=== PATIENT | male | born 1965 | race Caucasian/White ===

== ENCOUNTER 2022-01-06 06:14 | Observation (INO) ==
--- NOTE | 2021-12-18 09:36 | PAT Medication Instructions ---
Medication Instructions Date of Service December 18, 2021 Home Medications bupropion HCl 150 mg tablet,12 hr sustained-release 150 mg PO QAM cholecalciferol (vitamin D3) 25 mcg (1,000 unit) tablet (Vitamin D3) 25 mcg PO QAM cyanocobalamin (vitamin B-12) 5,000 mcg sublingual tablet (Vitamin B-12) 5,000 mcg SUBLINGUAL QAM diclofenac sodium 50 mg tablet,delayed release 50 mg PO BID hydroxyzine pamoate 50 mg capsule (Vistaril) 50 mg PO HS ibuprofen 200 mg tablet 800 mg PO Q6H PRN levothyroxine 150 mcg tablet 150 mcg PO QAM lisinopril 20 mg tablet 20 mg PO QAM paroxetine HCl 40 mg tablet (Paxil) 80 mg PO QAM simvastatin 10 mg tablet (Zocor) 10 mg PO QAM ASK your surgeon for instructions diclofenac sodium 50 mg tablet,delayed release 50 mg PO BID ibuprofen 200 mg tablet 800 mg PO Q6H PRN DO NOT take the morning of surgery cholecalciferol (vitamin D3) 25 mcg (1,000 unit) tablet (Vitamin D3) 25 mcg PO QAM cyanocobalamin (vitamin B-12) 5,000 mcg sublingual tablet (Vitamin B-12) 5,000 mcg SUBLINGUAL QAM lisinopril 20 mg tablet 20 mg PO QAM Take morning of surgery With a small sip of water, OTHERWISE NOTHING TO EAT OR DRINK AFTER MIDNIGHT: bupropion HCl 150 mg tablet,12 hr sustained-release 150 mg PO QAM levothyroxine 150 mcg tablet 150 mcg PO QAM paroxetine HCl 40 mg tablet (Paxil) 80 mg PO QAM simvastatin 10 mg tablet (Zocor) 10 mg PO QAM Take evening before surgery hydroxyzine pamoate 50 mg capsule (Vistaril) 50 mg PO HS Other Notes If you have any questions please call us at [phone] or [phone] or [phone] or [phone]
--- NOTE | 2021-12-18 11:49 | Anesthesiology Consultation ---
Date of Service December 18, 2021 Assessment & Plan (1) Encounter for pre-operative examination: - Awaiting surgeon-ordered PCP preop evaluation (Dr. Amaro; scheduled 12/23). - Hx "bone condition": Follows with Adina Pandya. Awaiting most recent heme/onc office visit note for further information/clarification. - COVID screening: Per assessment on 12/18: No known COVID-19 positive contacts or current COVID-19 related symptoms. Travel screen negative. Surgeon arranging preop COVID testing. Awaiting results. - Chlorhexidine allergy: Hives with use in the past- no wipes given at PAT visit. Chart Review Chart Review: Patient seen in Pre Admission Testing Teaching & Discussion Pre-Anesthesia Teaching/Discussion Notes: Instructed NPO after midnight before surgery,except medications with 15 cc of water. Medication instructions provided according to the [facility] guidelines. History Surgery Operation Date: 01/06/22 07:00 Proposed Procedures p Right Total Knee Arthroplasty - Evelio Cain MD Height/Weight Height: 6 ft 2 in Weight: 135.4 kg Allergies Allergy/AdvReac Type Severity Reaction Status Date / Time bee venom protein (honey bee) Allergy Severe Anaphylaxis Verified 12/18/21 08:31 chlorhexidine Allergy Intermediate Hives Verified 12/18/21 08:31 Medications Home Medications Medication Instructions Recorded Confirmed Last Taken bupropion HCl 150 mg tablet,12 hr 150 mg PO QAM 12/18/21 12/18/21 Unknown sustained-release cholecalciferol (vitamin D3) 25 25 mcg PO QAM 12/18/21 12/18/21 Unknown mcg (1,000 unit) tablet (Vitamin D3) cyanocobalamin (vitamin B-12) 5,000 mcg SUBLINGUAL QAM 12/18/21 12/18/21 Unknown 5,000 mcg sublingual tablet (Vitamin B-12) diclofenac sodium 50 mg 50 mg PO BID 12/18/21 12/18/21 Unknown tablet,delayed release hydroxyzine pamoate 50 mg capsule 50 mg PO HS 12/18/21 12/18/21 Unknown (Vistaril) ibuprofen 200 mg tablet 800 mg PO Q6H PRN 12/18/21 12/18/21 Unknown levothyroxine 150 mcg tablet 150 mcg PO QAM 12/18/21 12/18/21 Unknown lisinopril 20 mg tablet 20 mg PO QAM 12/18/21 12/18/21 Unknown paroxetine HCl 40 mg tablet (Paxil) 80 mg PO QAM 12/18/21 12/18/21 Unknown simvastatin 10 mg tablet (Zocor) 10 mg PO QAM 12/18/21 12/18/21 Unknown Past Medical History Medical History Anemia Anxiety Depression Gout Hyperlipidemia Hypertension Hypothyroidism Obesity Osteoarthritis Sarcoidosis of lung Right lung, stable/no recent issues Sleep apnea CPAP (compliant) Exercise / Class Metabolic Activity II 4-5 Yardwork/Stairs/Walk up hill (one FS (no CP, no SOB)) Past Family History Family History Other No family history of adverse response to anesthesia Past Surgical History Surgical History History of anesthesia reaction Slow to wake after bronchoscopy History of bronchoscopy History of colonoscopy History of esophagogastroduodenoscopy (EGD) History of repair of left rotator cuff History of tooth extraction History of umbilical hernia repair Past Anesthesia History No Family Hx of Anesthesia Complications and Other (single episode slow to wake (after bronchoscopy)) History of PONV No Hx of PONV and No Hx of Motion Sickness Social History Smoking Status: Former smoker Do You Dip or Chew Tobacco: No Smoking End Date: Quit 20+ years ago Hx Alcohol Use: Yes alcohol intake frequency: holidays/special occasions only Hx Substance Use: No substance use type: does not use Review of Systems Patient denies chest pain, shortness of breath, dyspnea on exertion, fever, chills, cough, wheezing, palpitations. Physical Exam Vital Signs VITALS BP 138/83 P 52 TEMP 98.2 SP02 96%RA RESP 16 PHYSICAL Full cervical extension range of motion. Full TMJ range of motion. TMD 4 finger breaths Mallampati Score 3 Dentition: several missing teeth Lungs: clear throughout to auscultation Cardiac: regular rate and rhythm, no murmurs noted, distant heart sounds Spine: normal Carotid arteries: negative bruit Extremities: trace pedal edema Lab Results Anesthesia Preop Results Results Anesthesia Widget: WBC 5.52 K/ul (4.8-10.8) 12/18/21 Hgb 12.1 g/dl (14.0-18.0) L 12/18/21 Hct 36.7 % (40.1-51.0) L 12/18/21 Plt 230 K/uL (130-400) 12/18/21 Na 139 mmol/L (136-145) 12/18/21 K 4.2 mmol/L (3.5-5.1) 12/18/21 Cl 105 mmol/L (98-107) 12/18/21 CO2 29 mmol/L (21-32) 12/18/21 BUN 26 mg/dl (6-23) H 12/18/21 Creat 1.35 mg/dl (0.6-1.4) 12/18/21 Glucose Level 87 mg/dl (70-99(Fasting)) 12/18/21 PT 10.6 Seconds (9.0-12.0) 12/18/21 PTT 25.7 Seconds (21.0-31.0) 12/18/21 INR 1.0 (0.9-1.1) 12/18/21 HA1c 6.1 % (4.5-5.6) H 12/18/21 Urine Color Dark Yellow 12/18/21 Urine Appearance Clear (Clear) 12/18/21 Urine pH 5.5 (4.5-7.5) 12/18/21 Urine Specific [place] 1.022 (1.000-1.030) 12/18/21 Urine Protein Negative (Negative) 12/18/21 Urine Glucose (UA) Negative (Negative) 12/18/21 Urine Ketones Trace (Negative) H 12/18/21 Urine Blood Negative (Negative) 12/18/21 Urine Nitrite Negative (Negative) 12/18/21 Urine Bilirubin Negative (Negative) 12/18/21 Urine Urobilinogen Negative (Negative) 12/18/21 Urine Leukocyte Esterase Negative (Negative) 12/18/21 Blood Type A Positive 12/18/21 Antibody Screen NEGATIVE 12/18/21 Testing Electrocardiogram Date: 12/18/21 SB at 46bpm. NS IVCD. Chest X-Ray Date: 12/18/21 FINDINGS: Frontal and lateral radiographs of the chest demonstrate the cardiomediastinal silhouette to be within normal limits. The lungs are clear of alveolar opacities. There is no evidence for effusion bilaterally. There is no evidence for vascular congestion. There is no acute osseous pathology. IMPRESSION: No acute cardiopulmonary disease.
--- NOTE | 2022-01-05 19:46 | History & Physical Report ---
Date of Service January 05, 2022 Assessment & Plan (1) Primary osteoarthritis of right knee: Plan: Treatment options discussed with the patient. He has failed conservative measures and would like to proceed with surgical intervention. Risks, benefits and alternatives to surgery including but not limited to infection, DVT, pain, stiffness, need for revision surgery, damage to blood vessels, damage to nerves, PE, , were discussed with the patient and they wish to proceed. Plan on right total knee arthroplasty scheduled for 01/06/22 at [facility] with Dr. Cain. Will plan on HHPT vs outpatient PT post op. Plan on aspirin 81mg twice daily for 1 mo post op. All questions answered. He will follow up post op. History of Present Illness Chief Complaint: right knee pain Primary Care Provider: NO PCP 56 year old male with PMHx significant for HTN, high cholesterol, hypothyroidism, sarcoidosis who presents with ongoing right knee pain. Pain is interfering with daily activities. He has failed conservative measures and would like to proceed with knee replacement. Patient denies headaches, sweats, fevers, chills, double vision, blurred vision, cough, sore throat, dysphagia, chest pain, sob, wheezing, n/v/d/c, numbness, tingling, fatigue, urinary symptoms, mood disorders. ROS positive for right knee pain and stiffness. Allergies Allergy/AdvReac Type Severity Reaction Status Date / Time bee venom protein (honey bee) Allergy Severe Anaphylaxis Verified 12/18/21 08:31 chlorhexidine Allergy Intermediate Hives Verified 12/18/21 08:31 Home Medications Medication Instructions Recorded Confirmed Type bupropion HCl 150 mg tablet,12 hr 150 mg PO QAM 12/18/21 12/18/21 History sustained-release cholecalciferol (vitamin D3) 25 25 mcg PO QAM 12/18/21 12/18/21 History mcg (1,000 unit) tablet (Vitamin D3) cyanocobalamin (vitamin B-12) 5,000 mcg sublingual QAM 12/18/21 12/18/21 History 5,000 mcg sublingual tablet (Vitamin B-12) diclofenac sodium 50 mg 50 mg PO BID 12/18/21 12/18/21 History tablet,delayed release hydroxyzine pamoate 50 mg capsule 50 mg PO HS 12/18/21 12/18/21 History (Vistaril) ibuprofen 200 mg tablet 800 mg PO Q6H PRN Pain 12/18/21 12/18/21 History levothyroxine 150 mcg tablet 150 mcg PO QAM 12/18/21 12/18/21 History lisinopril 20 mg tablet 20 mg PO QAM 12/18/21 12/18/21 History paroxetine HCl 40 mg tablet (Paxil) 80 mg PO QAM 12/18/21 12/18/21 History simvastatin 10 mg tablet (Zocor) 10 mg PO QAM 12/18/21 12/18/21 History Past Med/Surg History Medical History Anemia Anxiety Depression Gout Hyperlipidemia Hypertension Hypothyroidism Obesity Osteoarthritis Sarcoidosis of lung Right lung, stable/no recent issues Sleep apnea CPAP (compliant) Surgical History History of anesthesia reaction Slow to wake after bronchoscopy History of bronchoscopy History of colonoscopy History of esophagogastroduodenoscopy (EGD) History of repair of left rotator cuff History of tooth extraction History of umbilical hernia repair Family History Other No family history of adverse response to anesthesia Social History Smoking Status: Former smoker Second Hand Exposure: No; Hx Alcohol Use: Yes Hx Substance Use: No Preferred Language: Belgian Communication Ability: Effective Clinical Laboratory Technologist Required: No Beliefs That Will Affect Care: None Current Living Situation: Spouse and Family Current Living Situation Comment: lives with and daughter Feels Safe at Home: Yes Assistive Devices: CPAP and Glasses Review of Systems All systems reviewed & are unremarkable except as noted in HPI & below Physical Exam Constitutional: well developed and well nourished; no acute distress Eyes: PERRL, conjunctivae normal, anicteric sclerae ENMT: external ear and nose normal, oropharynx normal Neck: trachea midline, no thyromegaly Respiratory: normal respiratory effort, lungs clear to auscultation Cardiovascular: RRR, no murmur, no edema Musculoskeletal: Right knee: Tenderness lateral joint line. Mild effusion. Valgus alignment. Painful but full ROM 0-135 degrees. Crepitation with ROM. Stable to valgus and varus stress. Skin: no rashes, warm and dry Neurologic: patellar DTR's 2+ bilat, sensation intact Psychiatric: A+Ox3, euthymic affect Results & Data ([facility]) Diagnostic Findings Right knee radiographs demonstrate endstage osteoathritis lateral compartment with moderate to severe degenerative changes PF compartment.
[~2022-01-06 06:14] MED LIST: ACETAMINOPHEN 500 MG TAB PO SCH; CeleBREX 200 MG CAP PO SCH; FAMOTIDINE 20 MG TAB PO SCH; GABAPENTIN 600 MG DOSE PO SCH; LR 500ML BOLUS, THEN 15ML/HR IV SCH; METOCLOPRAMIDE HCL 10 MG TABLET PO SCH; ROPIVACAINE 0.5% HCL/PF 150 MG, BUPIVACAINE 0.75% MPF 20 ML, EPINEPHrine 30MG/30ML (OR ... INFIL SCH; TRANEXAMIC ACID 1,000 MG **IV Intra-op IV SCH; TRANEXAMIC ACID 1,000 MG **IV Pre-op IV SCH; dexAMETHasone 4 MG TAB PO SCH
[2022-01-06] MEDS ORDERED: BUPIVACAINE 0.5 % 5 MG/1 ML PF 10ML VIAL ONE (06:34)
[2022-01-06] MEDS ORDERED: ROPIVACAINE 0.5% 5 MG/ML 30 ML VIAL ONE (06:34)
--- NOTE | 2022-01-06 07:27 | History & Physical Bridge Note ---
Date of Service January 06, 2022 History & Physical Bridge Note I have examined the patient, reviewed the History & Physical and in the interval since the performance of the History & Physical I have noted the following changes of clinical significance: no changes noted
[2022-01-06] MEDS ORDERED: MIDAZOLAM HCL 1 MG/ML 2ML VIAL ONE (07:45)
[2022-01-06] MEDS ORDERED: fentaNYL citrate 100 MCG/2 ML VIAL ONE (07:45)
[2022-01-06] MEDS ORDERED: ORTHO JOINT ANESTHETIC ONE (09:16)
[2022-01-06] MEDS ORDERED: ONDANSETRON INJ 2 MG/ML 2 ML VIAL IV PRN ×2 (10:40→14:06)
[2022-01-06] MEDS ORDERED: LABETALOL HCL IV 5 MG/ML 20ML IV PRN (10:40)
[2022-01-06] MEDS ORDERED: ATROPINE SULFATE 0.1 MG/ML 10ML SYR IV PRN (10:40)
[2022-01-06] MEDS ORDERED: KETOROLAC 30 MG/ML VIAL IV PRN (10:40)
[2022-01-06] MEDS ORDERED: fentaNYL citrate 100 MCG/2 ML VIAL IV PRN (10:40)
[2022-01-06] MEDS ORDERED: PROPOFOL IV EMULSION 10 MG/ML 20 ML VIAL IV ONE (11:36)
[2022-01-06] MEDS ORDERED: ePHEDrine sulfate 50 MG/ML SYR ONE (11:36)
[2022-01-06] MEDS ORDERED: GLYCOPYRROLATE 0.2 MG/ML VIAL ONE (11:36)
[2022-01-06] MEDS ORDERED: LIDOCAINE 2% 2 ML VIAL/AMP(20MG/ML) INFIL ONE (11:36)
--- NOTE | 2022-01-06 11:53 | Operative Report ---
Post Operative Report Pre & Post Diagnosis Operation Date: 01/06/22 09:00 Pre-Op Diagnosis: Primary Osteoarthrits of the Right Knee Post-Op Diagnosis: Primary Osteoarthrits of the Right Knee I identified the patient and participated in the time-out.: Yes Procedure Operation Date: 01/06/22 09:00 Actual Procedures p Right Total Knee Arthroplasty(Right), superficial wound VAC application- Evelio Cain MD Surgeon Evelio Cain MD Master Chef Danial MCKEON Estimated Blood Loss 5 Findings Consistent with Post-Op Diagnosis Specimens Bone cuts Drains 2 Hemovac Anesthesia Type MAC Spinal Regional Complications none Disposition Disposition: Recovery Room Indications 56-year-old male with progressive pain and disability related osteoarthritis of his right knee with a valgus knee [id number] lateral compartment and moderate patellofemoral OA. Description of Procedure Patient taken to the operating room the size under spinal MAC regional block anesthesia. Patient was placed supine on the operating table. A pneumatic tourniquet was placed about the right upper thigh. The right lower extremity was prepped and draped in sterile fashion. Knee exam demonstrated moderate obesity with varicosities and some venous stasis changes calf and lower leg. The leg was elevated exsanguinated with an Esmarch bandage and pneumatic tourniquet was raised to 350 millimeters of mercury. Skin incised sharply in longitudinal fashion. Subcutaneous flaps elevated. Incision was made through the medial retinaculum extending up in the mid third of the quadriceps tendon and down to the medial tibial tubercle. Intra-articular findings demonstrated osteoarthritis tricompartmentally with grade III chondromalacia medially grade IV chondromalacia [id number] eburnated bone lateral compartment with chronic degeneration and tearing lateral meniscus and grade II chondromalacia patella but a large inferior patellar spur. The [place] triathlon total knee arthroplasty system was used. To expose the knee the infrapatellar fat pad was resected. The meniscal remnants and cruciate ligaments were resected. The anterior fat pad over the femur in the area of the anterior flange of the femoral component was resected. Lateral synovial bands release. The femur was exposed. An intramedullary drill hole was made into the canal. A guide idalia was placed. Distal femoral cutting guide was adjusted to resect a 6 degree valgus cut with 8 millimeters distal femur resected. The knee was extended and a subperiosteal peel lateral release was performed around the patella. Patella width was measured and width was reproduced using a freehand cut technique and a 36 symmetrical patella component. The 3 drill holes were made and the excess lateral facet was beveled off to prevent any impingement. Attention was taken back to the femur which was exposed with retractors and the femoral sizing guide was pinned in position. The drill holes were placed in 3 of external rotation to match epicondylar axis. Femur sized for a 5 component. The 4-in-1 cutting block was placed and then the anterior posterior and chamfer cuts are made. The tibia was then subluxed. The external tibial cutting guide was just to make a perpendicular cut to the long axis of the tibia below the most deficient bone loss side. A lamina plater apprentice was used and the flexion extension gaps were balanced. All posterior osteophytes removed. All meniscal remnants were resected. The tibia exposed and the trial tibial component size 5 was externally rotated in line with the tibial tubercle and pinned in position. The punch for stem was used. The notch cutting device was centered appropriately and the femoral notch cut was made. The femoral trial was inserted. Trial tibial inserts were placed and size 13 posterior stabilized gave balanced ligaments through flexion and extension. Patella tracking was assessed. The patella tracked centrally. The trial components were then removed and the orthomix anesthetic cocktail was injected per protocol. The knee was then copiously irrigated with pulsatile lavage saline solution. Final components were then cemented with Simplex cement. Final components were [place] triathlon 5 right posterior stabilized femoral component with distal fixation pegs, 5 primary tibial baseplate, 5 x 13 mm posterior stabilized tibial bearing insert, X.3 symmetrical patella size 36 x 10. After the cement cured the Betadine soak was used for 3 minutes. Further pulsatile lavage irrigation was then performed and 2 Hemovac drains were brought out laterally. The quadriceps tendon and medial retinaculum were closed with figure of 8 #1 Vicryl sutures. The knee was taken through full range of motion and the repair was secure. Knee range of motion was 0 through 135 degrees. The subcutaneous tissues were closed with 2-0 Vicryl sutures. Skin was closed with pallavi. Jose and Acticoat superficial wound VAC was applied. The patient tolerated the procedure well. Danial MCKEON was my physician buyer assistant who participated as assistant center director and was involved in all aspects of the procedure including patient positioning prepping and draping,leg positioning ,soft tissue retraction and instrument management and participated in the closing and will participate in postoperative care of the patient. The patient tolerated the procedure well. I attest to the content of the Intraoperative Record and any orders documented therein. Any exceptions are noted below.
--- NOTE | 2022-01-06 13:08 | XRay Report ---
RIGHT KNEE 2 VIEWS History: Right total knee arthroplasty. Degenerative arthritis. Postop. FINDINGS: The patient is status post a right total knee arthroplasty. The hardware is intact. No frac ture or dislocation. Skin pallavi and surgical drains are in place. IMPRESSION: Right total knee arthroplasty. No evidence for hardware complication. ACT 112: Negative or not required by law. Electronically signed by: Isidro Cuevas M.D. 01/06/2022 1:07 PM
--- NOTE | 2022-01-06 13:39 | Anesthesiology Progress Note ---
Date of Service January 06, 2022 Anesthesia Post Procedure Vital Signs Vital Signs: Temp Pulse Pulse Resp BP Pulse Ox O2 Del Method 01/06/22 13:30 67 18 99/61 L 97 Room Air 01/06/22 13:05 36.1 C L 48 L 16 121/74 96 Room Air 01/06/22 12:55 49 L 14 102/66 98 Oxymask 01/06/22 12:45 60 16 108/76 100 Oxymask 01/06/22 13:15 49 L 12 113/67 95 Room Air 01/06/22 12:38 36.3 C L 49 L 14 95/69 L 100 Oxymask 01/06/22 07:05 36.7 C 47 L 18 156/90 H 98 Room Air 01/06/22 07:05 CPAP O2 Flow Rate 01/06/22 13:30 01/06/22 13:05 01/06/22 12:55 2 01/06/22 12:45 4 01/06/22 13:15 01/06/22 12:38 6 01/06/22 07:05 01/06/22 07:05 Transfer of Care Handoff Completed per policy Notes Mental Status: alert / awake / arousable Patient Amnestic to Procedure: Yes Nausea / Vomiting: adequately controlled Pain: adequately controlled Airway Patency, RR, SpO2: stable & adequate BP & HR: stable & adequate Hydration State: stable & adequate Neuraxial Anesthesia: was administered and sensory block is resolving Anesthetic Complications: no major complications apparent
[2022-01-06] MEDS ORDERED: NALOXONE HCL 0.4 MG/1 ML VIAL/CARP IV PRN (14:06)
[2022-01-06] MEDS ORDERED: METOCLOPRAMIDE HCL INJ 5 MG/ML 2 ML VIAL IV PRN (14:06)
[2022-01-06] MEDS ORDERED: SODIUM CHLORIDE 0.9% 1000ML 1,000 ML IV SCH (14:06)
[2022-01-06] MEDS ORDERED: TAMSULOSIN HCL 0.4 MG CAP PO PRN (14:06)
[2022-01-06] MEDS ORDERED: MAGNESIUM HYDROXIDE SUSP 30 ML UDC PO PRN (14:06)
[2022-01-06] MEDS ORDERED: bisacodyL 10 MG SUPP PR PRN (14:06)
[2022-01-06] MEDS ORDERED: HYDROmorphone INJ 0.5 MG/0.5 ML SYR IV PRN (14:06)
[2022-01-06] MEDS ORDERED: ACETAMINOPHEN 500 MG TAB ONE (14:43)
[2022-01-06] MEDS: ACETAMINOPHEN 500 MG TAB PO SCH ×2 (14:44→23:04)
[2022-01-06] MEDS: oxyCODONE HCL IR 5 MG TAB (IMMEDIATE RELEASE) PO PRN ×2 (15:22→19:30)
--- NOTE | 2022-01-06 15:32 | Hospitalist Consultation ---
Date of Consultation January 06, 2022 Assessment & Plan (1) Status post right knee replacement: - R TKA POD [address] Cain - Pain control & perioperative abx as written by orthopedics - Celebrex 200mg BID - Recommend utilizing incentive spirometer q1h wa for atelectasis/pna prevention - PT/OT eval - DVT ppx for minimum of 14 days, given his MGUS + obesity, would consider him a higher risk of VTE and subsequently would advise use of DOAC for 14 days * Discussed with Donato MOJICAC with ortho, agreed to use of Xarelto, subsequently order placed - Hold Lisinopril POD#1 d/t spinal anesthesia as this increases risk of hypotension and/or RICK - Cap fluids as he is tolerating oral intake - CM consult for d/c planning and arrangement of home health (2) MGUS (monoclonal gammopathy of unknown significance): - Follows with [facility], last seen in September 2021 (3) Hypertension: - Hold Lisinopril POD#1 to avoid hypotension/rick - Can resume POD#2 (4) Hyperlipidemia: - Continue Simvastatin (5) Hypothyroidism: - Continue Levothyroxine (6) Sleep apnea: - Continue cpap at HS (7) Depression: - Continue Paxil & Wellbutrin (8) Anxiety: - Continue Vistaril Plan Advise follow up labs in AM, additional recommendations as outlined above. Thank you for allowing us to participate in the care of your patient, will continue to follow along. Above will be d/w Dr. Schwartz. History of Present Illness Reason for Consultation: medical management Requesting Physician: Dr. Cain Attending Physician: Evelio Cain MD History of Present Illness Donato Mcneil is a 56 yo WM with a pmhx of sarcoidosis, hypothyroidism, obesity, sleep apnea, htn, MGUS, chronic anemia, hyperlipidemia, and depression who was admitted under Dr. Cain's service for elective R TKA due to chronic knee pain and OA which failed conservative measures. He was taken to the OR today where he received spinal anesthesia. Was treated perioperatively with pain cocktail, fluids, and prophylactic Ancef. He had an uneventful intraoperative course was transitioned to PACU where he underwent nerve block for additional pain control. He is presently resting on 3rd floor during my visit. He has no complaints including cp, dyspnea, n/v/d, f/c, headache, or gu symptoms. No uncontrolled knee pain. He has no prior personal or family h/o VTE. He lives at home with his in a one story home with 3 steps to enter and plans to return home upon discharge. Hospitalists have been asked to see in consult for routine post operative medical management. Allergies Allergy/AdvReac Type Severity Reaction Status Date / Time bee venom protein (honey bee) Allergy Severe Anaphylaxis Verified 01/06/22 06:59 chlorhexidine Allergy Intermediate Hives Verified 01/06/22 06:59 Home Medications Medication Instructions Recorded Confirmed Type bupropion HCl 150 mg tablet,12 hr 150 mg PO QAM 12/18/21 01/06/22 History sustained-release (Wellbutrin SR) cholecalciferol (vitamin D3) 25 25 mcg PO QAM 12/18/21 01/06/22 History mcg (1,000 unit) tablet (Vitamin D3) cyanocobalamin (vitamin B-12) 5,000 mcg sublingual QAM 12/18/21 01/06/22 History 5,000 mcg sublingual tablet (Vitamin B-12) diclofenac sodium 50 mg 50 mg PO BID 12/18/21 01/06/22 History tablet,delayed release hydroxyzine pamoate 50 mg capsule 50 mg PO HS 12/18/21 01/06/22 History (Vistaril) ibuprofen 200 mg tablet 800 mg PO Q6H PRN Pain 12/18/21 01/06/22 History levothyroxine 150 mcg tablet 150 mcg PO QAM 12/18/21 01/06/22 History lisinopril 20 mg tablet 20 mg PO QAM 12/18/21 01/06/22 History paroxetine HCl 40 mg tablet (Paxil) 80 mg PO QAM 12/18/21 01/06/22 History simvastatin 10 mg tablet (Zocor) 10 mg PO QAM 12/18/21 01/06/22 History Patient History Medical History (Updated 01/06/22 @ 15:57 by Danuta Anand PA-C) Anemia Anxiety Depression Gout Hyperlipidemia Hypertension Hypothyroidism Obesity Osteoarthritis Sarcoidosis of lung Right lung, stable/no recent issues Sleep apnea CPAP (compliant) Surgical History (Updated 01/06/22 @ 15:57 by Danuta Anand PA-C) History of anesthesia reaction Slow to wake after bronchoscopy History of bronchoscopy History of colonoscopy History of esophagogastroduodenoscopy (EGD) History of repair of left rotator cuff History of tooth extraction History of umbilical hernia repair Family History Other No family history of adverse response to anesthesia Social History Smoking Status: Former smoker Smoking End Date: Quit 20+ years ago; Second Hand Exposure: No; Do You Dip or Chew Tobacco: No; Tobacco Cessation Education Requested by Patient: No Hx Alcohol Use: Yes Hx Substance Use: No Preferred Language: Yi Communication Ability: Effective Awning Craftsman Required: No Beliefs That Will Affect Care: None Current Living Situation: Spouse and Family Current Living Situation Comment: lives with and daughter Other Information That Helps Us Care for You: No Feels Safe at Home: Yes Safety Concerns: Feels Safe At This Time Assistive Devices: CPAP and Glasses Assistive Devices Comment: reading glasses Review of Systems Review of Systems: All systems reviewed and are unremarkable except as noted in HPI and below. Denies fever, chills, fatigue, headache, nasal congestion, sore throat, cough, chest pain, shortness of breath, palpitations, orthopnea, PND, abdominal pain, n/v/d, constipation, dysuria, hematuria, frequency, back pain, joint pain or swelling, easy bruising or bleeding, skin lesions or rashes. Physical Exam Physical Exam: GENERAL: 56 yo obese middle aged WM. Pleasant,cooperative. NAD. EYES: EOMI. PERRLA. Anicteric. HENT: Moist mucous membranes. No scleral icterus. No cervical lymphadenopathy. LUNGS: Clear to auscultation bilaterally. No W/R/R. CARDIOVASCULAR: Regular rate and rhythm. No M/G/R. No JVD. ABDOMEN: Soft, non-tender and non-distended. BS normoactive x 4 quad. EXTREMITIES: No edema. Non-tender. Peripheral pulses +2/4. R leg dressed/wrapped in shirin. Cap refill <2 sec. Neg fay's sign. NEUROLOGIC: A&O x3. No focal neurological deficits. CN II-XII grossly intact. PSYCHIATRIC: Cooperative. Appropriate mood and affect. SKIN: Warm, dry, intact. No rashes or lesions. Results & Data Results & Data ([facility]) Vital Signs (Past 12 Hours) Vital Signs Temp Pulse Pulse Resp BP Pulse Ox O2 Del Method 01/06/22 14:30 36.7 C 52 L 20 102/71 95 Room Air 01/06/22 14:00 36 C L 66 18 97/61 L 93 Room Air 01/06/22 13:45 63 12 100/66 93 Room Air 01/06/22 13:30 67 18 99/61 L 97 Room Air 01/06/22 13:05 36.1 C L 48 L 16 121/74 96 Room Air 01/06/22 12:55 49 L 14 102/66 98 Oxymask 01/06/22 12:45 60 16 108/76 100 Oxymask 01/06/22 13:15 49 L 12 113/67 95 Room Air 01/06/22 12:38 36.3 C L 49 L 14 95/69 L 100 Oxymask 01/06/22 07:05 36.7 C 47 L 18 156/90 H 98 Room Air 01/06/22 07:05 CPAP O2 Flow Rate 01/06/22 14:30 01/06/22 14:00 01/06/22 13:45 01/06/22 13:30 01/06/22 13:05 01/06/22 12:55 2 01/06/22 12:45 4 01/06/22 13:15 01/06/22 12:38 6 01/06/22 07:05 01/06/22 07:05 Laboratory Results Reviewed preop labs from 12/18/21 hgb 12.1, hct 36.7 BUN 26, creat 1.35 UA negative, COVID (-) CXR=no acute cardiopulmonary disease EKG= Sinus timo, rate 46, no acute ST-T wave changes Diagnostic Findings Knee X-Ray 01/06/22 12:40 RIGHT KNEE 2 VIEWS History: Right total knee arthroplasty. Degenerative arthritis. Postop. FINDINGS: The patient is status post a right total knee arthroplasty. The hardware is intact. No fracture or dislocation. Skin pallavi and surgical drains are in place. IMPRESSION: Right total knee arthroplasty. No evidence for hardware complication. ACT 112: Negative or not required by law. Electronically signed by: Isidro Cuevas M.D. 01/06/2022 1:07 PM PG Care Time/CCT Total # of Minutes Spent Total Time Spent with Patient: Total time spent is greater than 50% in coordination of care (as documented) at patient's floor/unit and/or counseling patient: Coding Level of Care Code 46748 Office/OBS Consult Lvl 4 Diagnoses Status post right knee replacement Z96.651 MGUS (monoclonal gammopathy of unknown significance) D47.2 Hypertension I10 Hyperlipidemia E78.5 Hypothyroidism E03.9 Sleep apnea G47.30 Depression F32.A Anxiety F41.9
[2022-01-06] MEDS: ceFAZolin 2000MG 2,000 MG/15 ML SYR IV SCH (17:57)
[2022-01-06] MEDS: DOCUSATE SODIUM 100 MG CAP PO SCH (20:38)
[2022-01-06] MEDS: SENNA 8.6 MG TAB PO SCH (20:38)
[2022-01-06] MEDS: CeleBREX 200 MG CAP PO SCH (20:38)
[2022-01-06] MEDS: hydrOXYzine HCl 25 MG TAB PO SCH (20:38)
[2022-01-06] MEDS ORDERED: ASPIRIN 81 MG ECTAB PO SCH (21:00)
[2022-01-06] MEDS ORDERED: NON-FORMULARY MEDICATION (Diclofenac Sodium 50 mg Tablet,Delayed Release (Dr/Ec)) PO SCH (21:00)
[2022-01-07] MEDS: ceFAZolin 2000MG 2,000 MG/15 ML SYR IV SCH (01:35)
[2022-01-07] MEDS: LEVOTHYROXINE SODIUM 150 MCG TABLET PO SCH (05:51)
[2022-01-07] MEDS: ACETAMINOPHEN 500 MG TAB PO SCH ×3 (05:51→22:10)
[2022-01-07] MEDS: oxyCODONE HCL IR 5 MG TAB (IMMEDIATE RELEASE) PO PRN ×3 (05:52→19:28)
[2022-01-07 06:08] LABS: Hematocrit (blood only) 32.2 % (40.1-51.0); Hemoglobin 10.7 g/dl (14.0-18.0); Mean Corpuscular Hemoglobin 28.6 pg (25.0-34.0); Mean Corpuscular Hgb Conc 33.2 g/dL (32.0-36.0); Mean Corpuscular Volume 86.1 fL (80.0-100.0); Mean Platelet Volume 9.9 fL (9.4-12.4); Platelet Count 201 K/uL (130-400); RDW Coefficient of Variation 14.7 % (11.5-14.5); RDW Standard Deviation 46.5 fL (36.4-46.3); Red Blood Count 3.74 M/uL (4.63-6.08); White Blood Count 11.02 K/ul (4.8-10.8)
[2022-01-07 06:34] LABS: BUN Creatinine Ratio 23.6 (10-20); Creatinine Clr Calc Pharmacy 80.6 ml/min; Est GFR (Non-African American) 51.8 ml/min; Potassium 4.4 mmol/L (3.5-5.1)
[2022-01-07] MEDS: PARoxetine HCL 20 MG TAB PO SCH (07:38)
[2022-01-07] MEDS: buPROPion SR 150 MG TABCR PO SCH (07:38)
[2022-01-07] MEDS: DOCUSATE SODIUM 100 MG CAP PO SCH ×2 (07:39→19:29)
[2022-01-07] MEDS: CHOLECALCIFEROL 1,000 UNITS 25 MCG TAB PO SCH (07:39)
[2022-01-07] MEDS: MULTIVITAMIN TAB PO SCH (07:39)
[2022-01-07] MEDS: CYANOCOBALAMIN (B-12) 2,500 MCG TABLET SL SCH (07:39)
[2022-01-07] MEDS: SIMVASTATIN 10 MG TAB PO SCH (07:39)
[2022-01-07] MEDS: RIVAROXABAN 10 MG TABLET PO SCH (07:39)
[2022-01-07] MEDS: CeleBREX 200 MG CAP PO SCH (07:39)
--- NOTE | 2022-01-07 08:58 | Hospitalist Progress Note ---
Date of Service January 07, 2022 Assessment & Plan (1) Status post right knee replacement: Plan: - R TKA POD [address] Cain - Pain control & perioperative abx as written by orthopedics - Celebrex 200mg BID - Recommend utilizing incentive spirometer q1h wa for atelectasis/pna prevention - PT/OT eval - DVT ppx for minimum of 14 days, given his MGUS + obesity, would consider him a higher risk of VTE and subsequently would advise use of DOAC for 14 days * Discussed with Donato Lara PA-C with ortho, agreed to use of Xarelto, subsequently order placed - Hold Lisinopril POD#1 d/t spinal anesthesia as this increases risk of hypotension and/or RICK - Cap fluids as he is tolerating oral intake - consult for d/c planning and arrangement of home health (2) MGUS (monoclonal gammopathy of unknown significance): Plan: - Follows with [facility], last seen in September 2021 (3) Hypertension: Plan: - Hold Lisinopril POD#1 to avoid hypotension/rick - Can resume POD#2 (4) Hyperlipidemia: Plan: - Continue Simvastatin (5) Hypothyroidism: Plan: - Continue Levothyroxine (6) Sleep apnea: Plan: - Continue cpap at HS (7) Depression: Plan: - Continue Paxil & Wellbutrin (8) Anxiety: Plan: - Continue Vistaril Plan Advise follow up labs in AM, additional recommendations as outlined above. Thank you for allowing us to participate in the care of your patient, will continue to follow along. Above will be d/w Dr. Schwartz. Admission and Anticipated Discharge Date Admission Date: January 06, 2022 Results & Data Results & Data ([facility]) Vital Signs (Past 12 Hours) Vital Signs Temp Pulse Resp BP Pulse Ox O2 Del Method O2 Flow Rate 01/07/22 08:00 Room Air 01/07/22 07:27 97.5 F L 49 L 18 112/69 98 01/07/22 03:53 97.5 F L 47 L 16 101/62 97 Nasal Cannula 2.0 01/06/22 22:19 97.5 F L 53 L 18 101/59 L 94 Room Air 01/06/22 21:01 50 L 20 123/69 94 PG Care Time/CCT Total # of Minutes Spent Total Time Spent with Patient: Total time spent is greater than 50% in coordination of care (as documented) at patient's floor/unit and/or counseling patient: Coding Level of Care Code 99472 Inpt Consult Level 3 Diagnoses Status post right knee replacement Z96.651 MGUS (monoclonal gammopathy of unknown significance) D47.2 Hypertension I10 Hyperlipidemia E78.5 Hypothyroidism E03.9 Sleep apnea G47.30 Depression F32.A Anxiety F41.9
[2022-01-07] MEDS ORDERED: lisinopril 20 MG TAB PO SCH (09:00)
[2022-01-07] MEDS ORDERED: SODIUM CHLORIDE 0.9% 1000ML 500 ML IV ONE (09:05)
--- NOTE | 2022-01-07 09:35 | Orthopedic Progress Note ---
Date of Service January 07, 2022 Assessment & Plan (1) Primary osteoarthritis of right knee: Plan: Postop day 1 status post right total knee arthroplasty PT/OT protocols. Weightbearing as tolerated. DVT prophylaxis-aspirin p.o. twice daily, SCDs, ROBINSON stuart. Pain management as written. Increased creatinine-preop creatinine was 1.5 and patient bumped up to 1.48. Consider small bolus of fluids with possible recheck later this afternoon. I will discussed this with Dr. Schwartz who is seeing the patient today. Patient is notably bradycardic which he states is his normal. EKG ordered by Dr. Schwartz showing sinus bradycardia/incomplete right bundle branch block DC planning-plan for outpatient PT versus home health when ready for discharge. Admission and Anticipated Discharge Date Admission Date: January 06, 2022 Subjective Postop day 1 Patient is sitting in his chair at the bedside. He is about to undergo therapy session. Patient states that his pain control is adequate. Denies shortness of breath, chest pain, lightheadedness. We discussed that he had a slight increase in his creatinine and that we might recheck it later today as well as give him a small bolus of fluids if okay with hospitalist service. Patient understands. Physical Exam Physical Exam: Dressings are clean, dry, and intact. Calves are soft nontender. Neurovascular is intact. Toes are mobile. He has good dorsiflexion and plantarflexion of the right foot. Hemovac drainage was 150 mL from the previous shift. Results & Data ([facility]) Vital Signs (Past 12 Hours) Vital Signs Temp Pulse Resp BP Pulse Ox O2 Del Method O2 Flow Rate 01/07/22 08:00 Room Air 01/07/22 07:27 36.4 C L 49 L 18 112/69 98 01/07/22 03:53 36.4 C L 47 L 16 101/62 97 Nasal Cannula 2.0 01/06/22 22:19 36.4 C L 53 L 18 101/59 L 94 Room Air Laboratory Results Laboratory Results WBC 11.02 K/ul (4.8-10.8) H 01/07/22 05:33 RBC 3.74 M/uL (4.63-6.08) L 01/07/22 05:33 Hgb 10.7 g/dl (14.0-18.0) L 01/07/22 05:33 Hct 32.2 % (40.1-51.0) L 01/07/22 05:33 MCV 86.1 fL (80.0-100.0) 01/07/22 05:33 MCH 28.6 pg (25.0-34.0) 01/07/22 05:33 MCHC 33.2 g/dL (32.0-36.0) 01/07/22 05:33 RDW Std Deviation 46.5 fL (36.4-46.3) H 01/07/22 05:33 RDW Coeff of Ed 14.7 % (11.5-14.5) H 01/07/22 05:33 Plt Count 201 K/uL (130-400) 01/07/22 05:33 MPV 9.9 fL (9.4-12.4) 01/07/22 05:33 Sodium 136 mmol/L (136-145) 01/07/22 05:33 Potassium 4.4 mmol/L (3.5-5.1) 01/07/22 05:33 Chloride 105 mmol/L (98-107) 01/07/22 05:33 Carbon Dioxide 23 mmol/L (21-32) 01/07/22 05:33 Anion Gap 8 (3-11) 01/07/22 05:33 BUN 35 mg/dl (6-23) H 01/07/22 05:33 Creatinine 1.48 mg/dl (0.6-1.4) H 01/07/22 05:33 Est Cr Clr Drug Dosing 80.6 ml/min 01/07/22 05:33 Est GFR ( Amer) 60.0 ml/min 01/07/22 05:33 Est GFR (Non-Af Amer) 51.8 ml/min 01/07/22 05:33 BUN/Creatinine Ratio 23.6 (10-20) H 01/07/22 05:33 Glucose 134 mg/dl (70-99(Fasting)) H 01/07/22 05:33 Calcium 8.0 mg/dl (8.5-10.1) L 01/07/22 05:33 SARS-CoV-2, RNA, NAAT NEGATIVE (NEGATIVE) 01/06/22 06:36 Impressions Knee X-Ray 07/27/22 12:40 RIGHT KNEE 2 VIEWS History: Right total knee arthroplasty. Degenerative arthritis. Postop. FINDINGS: The patient is status post a right total knee arthroplasty. The hard guerra is intact. No fracture or dislocation. Skin pallavi and surgical drains are in place. IMPRESSION: Right total knee arthroplasty. No evidence for hardware complication. ACT 112: Negative or not required by law. Electronically signed by: Isidro Cuevas M.D. 01/06/2022 1:07 PM
[2022-01-07] MEDS: SODIUM CHLORIDE 0.9% 1000ML 1,000 ML IV SCH ×2 (10:05→22:12)
--- NOTE | 2022-01-07 14:50 | Hospitalist Progress Note ---
Date of Service January 07, 2022 Assessment & Plan (1) Status post right knee replacement: Plan: - R TKA 01/06/[address] Cain - Recommend utilizing incentive spirometer q1h wa for atelectasis/pna prevention - DVT ppx for minimum of 14 days, given his MGUS + obesity, would consider him a higher risk of VTE and subsequently would advise use of DOAC for 14 days * Discussed with Donato Lara PA-C with ortho, agreed to use of Xarelto, subsequently order placed - Hold Lisinopril POD#1 d/t spinal anesthesia as this increases risk of hypotension and/or RICK, continue to hold if blood pressure is low - CM consult for d/c planning (2) MGUS (monoclonal gammopathy of unknown significance): Plan: - Follows with [facility], last seen in September 2021 (3) Hypertension: Plan: - Hold Lisinopril to avoid hypotension/rick (4) Hyperlipidemia: Plan: - Continue Simvastatin (5) Hypothyroidism: Plan: - Continue Levothyroxine (6) Sleep apnea: Plan: - Continue cpap at HS (7) Depression: Plan: - Continue Paxil & Wellbutrin (8) Anxiety: Plan: - Continue Vistaril Admission and Anticipated Discharge Date Admission Date: January 06, 2022 Subjective pt is asymptomatic with regard to his bradycardia knee pain is controlled family requests tsh check with hoarse voice that maybe from OR Review of Systems Review of Systems: Mild distress and fatigue no headache, no visual changes no speech or swallowing issues, some hoarse voice no chest pain, pressure or palpitations no shortness of breath, cough or wheezes no abdominal pain, nausea or vomiting, diarrhea or constipation no dysuria, hematuria or frequency right knee pain typical for post op pain. no back pain, CVA tenderness or radicular pain no bruising, bleeding or rashes no focal signs of weakness or numbness or altered sensation no complaints of anxiety or depression.. Physical Exam Physical Exam: The patient appeared stable Vital signs as documented. Lungs are clear to auscultation and appear unlabored Cardiac exam, Rhythm is bradycardia.. No murmurs, rubs or gallops. Abdominal exam reveals normal bowel sounds, soft non tender, no masses right knee is with bandage and hemovac Neurologic exam is alert and oriented, no focal loss of strength or sensatio Psychologically is without concerns for anxiety or depression. Results & Data Results & Data ([facility]) Vital Signs (Past 12 Hours) Vital Signs Temp Pulse Resp BP Pulse Ox O2 Del Method O2 Flow Rate 01/07/22 08:00 Room Air 01/07/22 07:27 97.5 F L 49 L 18 112/69 98 01/07/22 03:53 97.5 F L 47 L 16 101/62 97 Nasal Cannula 2.0 PG Care Time/CCT Total # of Minutes Spent Total Time Spent with Patient: Total time spent is greater than 50% in coordination of care (as documented) at patient's floor/unit and/or counseling patient: Coding Level of Care Code 04265 Subseq Hosp Care Lvl 2 Diagnoses Status post right knee replacement Z96.651 MGUS (monoclonal gammopathy of unknown significance) D47.2 Hypertension I10 Hyperlipidemia E78.5 Hypothyroidism E03.9 Sleep apnea G47.30 Depression F32.A Anxiety F41.9
--- NOTE | 2022-01-07 16:45 | Electrocardiogram Report ---
Test Reason : Blood Pressure : / mmHG Vent. Rate : 051 BPM Atrial Rate : 051 BPM P-R Int : 174 ms QRS Dur : 112 ms QT Int : 466 ms P-R-T Axes : 040 -20 012 degrees QTc Int : 429 ms Sinus bradycardia Incomplete right bundle branch block Minimal voltage criteria for LVH, may be normal variant Abnormal ECG When compared with ECG of 18-DEC-2021 12:10, Incomplete right bundle branch block has replaced Non-specific intra-ventricular conduction delay Confirmed by Conrado Duncan ([id number]) on 01/07/2022 4:45:14 PM Referred By: Evelio Cain Confirmed By:Conrado Duncan
[2022-01-07] MEDS: SENNA 8.6 MG TAB PO SCH (19:29)
[2022-01-07] MEDS: hydrOXYzine HCl 25 MG TAB PO SCH (19:29)
[2022-01-08] MEDS: ACETAMINOPHEN 500 MG TAB PO SCH ×2 (05:41→13:19)
[2022-01-08] MEDS: LEVOTHYROXINE SODIUM 150 MCG TABLET PO SCH (05:41)
[2022-01-08 05:43] LABS: Hematocrit (blood only) 28.6 % (40.1-51.0); Hemoglobin 9.4 g/dl (14.0-18.0); Mean Corpuscular Hemoglobin 28.9 pg (25.0-34.0); Mean Corpuscular Hgb Conc 32.9 g/dL (32.0-36.0); Mean Platelet Volume 9.9 fL (9.4-12.4); Platelet Count 168 K/uL (130-400); RDW Coefficient of Variation 15.1 % (11.5-14.5); RDW Standard Deviation 48.3 fL (36.4-46.3); Red Blood Count 3.25 M/uL (4.63-6.08); White Blood Count 7.71 K/ul (4.8-10.8)
[2022-01-08 06:06] LABS: Calcium 7.9 mg/dl (8.5-10.1); Creatinine Clr Calc Pharmacy 103.7 ml/min; Est GFR (African American) 81.4 ml/min; Est GFR (Non-African American) 70.3 ml/min; Potassium 4.3 mmol/L (3.5-5.1)
[2022-01-08] MEDS: oxyCODONE HCL IR 5 MG TAB (IMMEDIATE RELEASE) PO PRN ×3 (06:14→16:10)
[2022-01-08 07:01] LABS: Lyme Ab IgM w/WB Rflx Negative (Negative)
[2022-01-08 07:02] LABS: Lyme Ab IgG w/WB Rflx Negative (Negative)
[2022-01-08] MEDS: SIMVASTATIN 10 MG TAB PO SCH (08:58)
[2022-01-08] MEDS: buPROPion SR 150 MG TABCR PO SCH (08:58)
[2022-01-08] MEDS: PARoxetine HCL 20 MG TAB PO SCH (08:59)
[2022-01-08] MEDS: DOCUSATE SODIUM 100 MG CAP PO SCH (08:59)
[2022-01-08] MEDS: CYANOCOBALAMIN (B-12) 2,500 MCG TABLET SL SCH (08:59)
[2022-01-08] MEDS: MULTIVITAMIN TAB PO SCH (08:59)
[2022-01-08] MEDS: RIVAROXABAN 10 MG TABLET PO SCH (08:59)
[2022-01-08] MEDS: CHOLECALCIFEROL 1,000 UNITS 25 MCG TAB PO SCH (09:00)
[2022-01-08] MEDS: SODIUM CHLORIDE 0.9% 1000ML 1,000 ML IV SCH (10:17)
--- NOTE | 2022-01-08 11:35 | Orthopedic Progress Note ---
Date of Service January 08, 2022 Assessment & Plan (1) Primary osteoarthritis of right knee: Plan: Postop day 2 status post right total knee arthroplasty PT/OT protocols. Weightbearing as tolerated. Progressing with his physical therapy. DVT prophylaxis-Xarelto p.o. daily, SCDs, ROBINSON stuart. Pain management as written. Increased creatinine-creatinine has now come down to 1.15. Discontinue IV fluids. DC planning-plan for outpatient PT versus home health when ready for discharge. I have discussed the case with Dr. Suazo. Plan for discharge to home today. Admission and Anticipated Discharge Date Admission Date: January 06, 2022 Subjective Postop day 2 Patient undergoing his physical therapy session at this time. No new complaints. Patient feels well. He is hoping to go home today. Denies chest pain, shortness of breath, lightheadedness. His creatinine is better today after gentle hydration. Physical Exam Physical Exam: Dressings are clean, dry, and intact. Calves are soft and nontender. Neurovascular is intact. Toes are mobile. Results & Data ([facility]) Vital Signs (Past 12 Hours) Vital Signs Temp Pulse Resp BP Pulse Ox O2 Del Method 01/08/22 07:45 Room Air 01/08/22 07:15 36.5 C 56 L 16 120/76 95 Room Air Laboratory Results 01/08/22 01/08/22 01/08/22 Range/Units 05:22 05:22 05:22 WBC 7.71 (4.8-10.8) K/ul RBC 3.25 L (4.63-6.08) M/uL Hgb 9.4 L (14.0-18.0) g/dl Hct 28.6 L (40.1-51.0) % MCV 88.0 (80.0-100.0) fL MCH 28.9 (25.0-34.0) pg MCHC 32.9 (32.0-36.0) g/dL RDW Std Deviation 48.3 H (36.4-46.3) fL RDW Coeff of Ed 15.1 H (11.5-14.5) % Plt Count 168 (130-400) K/uL MPV 9.9 (9.4-12.4) fL Sodium 139 (136-145) mmol/L Potassium 4.3 (3.5-5.1) mmol/L Chloride 110 H (98-107) mmol/L Carbon Dioxide 26 (21-32) mmol/L Anion Gap 3 (3-11) BUN 31 H (6-23) mg/dl Creatinine 1.15 D (0.6-1.4) mg/dl Est Cr Clr Drug Dosing 103.7 ml/min Est GFR ( Amer) 81.4 ml/min Est GFR (Non-Af Amer) 70.3 ml/min BUN/Creatinine Ratio 27.0 H (10-20) Glucose 82 (70-99(Fasting)) mg/dl Calcium 7.9 L (8.5-10.1) mg/dl TSH 1.951 (0.300-4.500) uIu/ml Lyme Disease IgG Ab (Negative) Lyme Disease IgM Ab (Negative) Hepatitis C Ab (EIA) (NON-REACTIVE) Hep C Ab Signal/Cutoff (<1.00) 01/08/22 01/07/22 Range/Units 05:22 05:33 WBC (4.8-10.8) K/ul RBC (4.63-6.08) M/uL Hgb (14.0-18.0) g/dl Hct (40.1-51.0) % MCV (80.0-100.0) fL MCH (25.0-34.0) pg MCHC (32.0-36.0) g/dL RDW Std Deviation (36.4-46.3) fL RDW Coeff of Ed (11.5-14.5) % Plt Count (130-400) K/uL MPV (9.4-12.4) fL Sodium (136-145) mmol/L Potassium (3.5-5.1) mmol/L Chloride (98-107) mmol/L Carbon Dioxide (21-32) mmol/L Anion Gap (3-11) BUN (6-23) mg/dl Creatinine (0.6-1.4) mg/dl Est Cr Clr Drug Dosing ml/min Est GFR ( Amer) ml/min Est GFR (Non-Af Amer) ml/min BUN/Creatinine Ratio (10-20) Glucose (70-99(Fasting)) mg/dl Calcium (8.5-10.1) mg/dl TSH (0.300-4.500) uIu/ml Lyme Disease IgG Ab Negative (Negative) Lyme Disease IgM Ab Negative (Negative) Hepatitis C Ab (EIA) NON-REACTIVE (NON-REACTIVE) Hep C Ab Signal/Cutoff 0.01 (<1.00)
--- NOTE | 2022-01-08 17:01 | Hospitalist Progress Note ---
Date of Service January 08, 2022 Assessment & Plan (1) Status post right knee replacement: Plan: - R TKA 01/06/[address] Cain - - DVT ppx for minimum of 14 days, given his MGUS + obesity, would consider him a higher risk of VTE and subsequently would advise use of DOAC for 14 days * Discussed with Donato Lara PA-C with ortho, agreed to use of Xarelto, subsequently order placed - (2) MGUS (monoclonal gammopathy of unknown significance): Plan: - Follows with [facility], last seen in September 2021 (3) Hypertension: Plan: - Resume lisinopril Acute kidney injury has resolved (4) Hyperlipidemia: Plan: - Continue Simvastatin (5) Hypothyroidism: Plan: - Continue Levothyroxine TSH was checked prior to discharge and found to be normal (6) Sleep apnea: Plan: - Continue cpap at HS (7) Depression: Plan: - Continue Paxil & Wellbutrin (8) Anxiety: Plan: - Continue Vistaril Plan Lyme titer was checked with bradycardia and found to be negative Admission and Anticipated Discharge Date Admission Date: January 06, 2022 Subjective Patient seen prior to going home was doing well having some post physical therapy knee pain but tolerable Informed that his TSH was within normal limits and his Lyme screen was unremarkable Patient in improvement of his acute kidney injury with hydration and he has no untoward effects from his bradycardia which he states is chronic. Review of Systems Review of Systems: Mild distress and fatigue no headache, no visual changes no speech or swallowing issues, some hoarse voice no chest pain, pressure or palpitations no shortness of breath, cough or wheezes no abdominal pain, nausea or vomiting, diarrhea or constipation no dysuria, hematuria or frequency right knee pain typical for post op pain. no back pain, CVA tenderness or radicular pain no bruising, bleeding or rashes no focal signs of weakness or numbness or altered sensation no complaints of anxiety or depression.. Physical Exam Physical Exam: The patient appeared stable Vital signs as documented. Lungs are clear to auscultation and appear unlabored Cardiac exam, Rhythm is bradycardia.. No murmurs, rubs or gallops. Abdominal exam reveals normal bowel sounds, soft non tender, no masses right knee is with bandage Neurologic exam is alert and oriented, no focal loss of strength or sensatio Psychologically is without concerns for anxiety or depression. Results & Data Results & Data ([facility]) Vital Signs (Past 12 Hours) Vital Signs Temp Pulse Resp BP Pulse Ox O2 Del Method 01/08/22 14:54 97.5 F L 60 14 108/69 95 Room Air 01/08/22 12:47 97.7 F 56 L 16 120/76 95 01/08/22 07:45 Room Air 01/08/22 07:15 97.7 F 56 L 16 120/76 95 Room Air PG Care Time/CCT Total # of Minutes Spent Total Time Spent with Patient: Total time spent is greater than 50% in coordination of care (as documented) at patient's floor/unit and/or counseling patient: Coding Level of Care Code 13325 Subseq Hosp Care Lvl 2 Diagnoses Status post right knee replacement Z96.651 MGUS (monoclonal gammopathy of unknown significance) D47.2 Hypertension I10 Hyperlipidemia E78.5 Hypothyroidism E03.9 Sleep apnea G47.30 Depression F32.A Anxiety F41.9
--- NOTE | 2022-01-11 11:08 | Discharge Summary ---
Date of Service January 11, 2022 Admission HPI Per Admitting Provider 56 year old male with PMHx significant for HTN, high cholesterol, hypothyroidism, sarcoidosis who presents with ongoing right knee pain. Pain is interfering with daily activities. He has failed conservative measures and would like to proceed with knee replacement. Patient denies headaches, sweats, fevers, chills, double vision, blurred vision, cough, sore throat, dysphagia, chest pain, sob, wheezing, n/v/d/c, numbness, tingling, fatigue, urinary symptoms, mood disorders. ROS positive for right knee pain and stiffness. Admission Exam Per Admitting Provider Constitutional: well developed and well nourished; no acute distress Eyes: PERRL, conjunctivae normal, anicteric sclerae ENMT: external ear and nose normal, oropharynx normal Neck: trachea midline, no thyromegaly Respiratory: normal respiratory effort, lungs clear to auscultation Cardiovascular: RRR, no murmur, no edema Musculoskeletal: Right knee: Tenderness lateral joint line. Mild effusion. Valgus alignment. Painful but full ROM 0-135 degrees. Crepitation with ROM. Stable to valgus and varus stress. Skin: no rashes, warm and dry Neurologic: patellar DTR's 2+ bilat, sensation intact Psychiatric: A+Ox3, euthymic affect Principal Diagnosis Right knee osteoarthritis Discharge Exam Dressings are clean, dry, and intact. Calves are soft and nontender. Neurovascular is intact. Toes are mobile. Constitutional well developed and well nourished; no acute distress Discharge Data Allergies Allergy/AdvReac Type Severity Reaction Status Date / Time bee venom protein (honey bee) Allergy Severe Anaphylaxis Verified 01/06/22 06:59 chlorhexidine Allergy Intermediate Hives Verified 01/06/22 06:59 Consultations 01/05/22 09:03 Consult Hospitalist Routine Procedures Performed Operation Date: 01/06/22 09:00 Actual Procedures p Right Total Knee Arthroplasty(Right) - Evelio Cain MD Ordered Studies 01/06/22 05:00 US - OR guided needle placemen Routine Hospital Course (1) Primary osteoarthritis of right knee: Postop day 2 status post right total knee arthroplasty PT/OT protocols. Weightbearing as tolerated. Progressing with his physical therapy. DVT prophylaxis-Xarelto p.o. daily, SCDs, ROBINSON hose. Pain management as written. Increased creatinine-creatinine has now come down to 1.15. Discontinue IV fluids. DC planning-plan for outpatient PT versus home health when ready for discharge. I have discussed the case with Dr. Suazo. Plan for discharge to home today. Postop day 1 status post right total knee arthroplasty PT/OT protocols. Weightbearing as tolerated. DVT prophylaxis-Xarelto 10mg daily, SCDs, ROBINSON stuart. Pain management as written. Increased creatinine-preop creatinine was 1.5 and patient bumped up to 1.48. Consider small bolus of fluids with possible recheck later this afternoon. I will discussed this with Dr. Schwartz who is seeing the patient today. Patient is notably bradycardic which he states is his normal. EKG ordered by Dr. Schwartz showing sinus bradycardia/incomplete right bundle branch block Lab Results 01/06/22 01/07/22 01/07/22 Range/Units 06:36 05:33 05:33 WBC 11.02 H (4.8-10.8) K/ul RBC 3.74 L (4.63-6.08) M/uL Hgb 10.7 L (14.0-18.0) g/dl Hct 32.2 L (40.1-51.0) % MCV 86.1 (80.0-100.0) fL MCH 28.6 (25.0-34.0) pg MCHC 33.2 (32.0-36.0) g/dL RDW Std Deviation 46.5 H (36.4-46.3) fL RDW Coeff of Ed 14.7 H (11.5-14.5) % Plt Count 201 (130-400) K/uL MPV 9.9 (9.4-12.4) fL Sodium 136 (136-145) mmol/L Potassium 4.4 (3.5-5.1) mmol/L Chloride 105 (98-107) mmol/L Carbon Dioxide 23 (21-32) mmol/L Anion Gap 8 (3-11) BUN 35 H (6-23) mg/dl Creatinine 1.48 H (0.6-1.4) mg/dl Est Cr Clr Drug Dosing 80.6 ml/min Est GFR ( Amer) 60.0 ml/min Est GFR (Non-Af Amer) 51.8 ml/min BUN/Creatinine Ratio 23.6 H (10-20) Glucose 134 H (70-99(Fasting)) mg/dl Calcium 8.0 L (8.5-10.1) mg/dl TSH (0.300-4.500) uIu/ml Lyme Disease IgG Ab (Negative) Lyme Disease IgM Ab (Negative) Hepatitis C Ab (EIA) (NON-REACTIVE) Hep C Ab Signal/Cutoff (<1.00) SARS-CoV-2, RNA, NAAT NEGATIVE (NEGATIVE) 01/07/22 01/08/22 01/08/22 Range/Units 05:33 05:22 05:22 WBC (4.8-10.8) K/ul RBC (4.63-6.08) M/uL Hgb (14.0-18.0) g/dl Hct (40.1-51.0) % MCV (80.0-100.0) fL MCH (25.0-34.0) pg MCHC (32.0-36.0) g/dL RDW Std Deviation (36.4-46.3) fL RDW Coeff of Ed (11.5-14.5) % Plt Count (130-400) K/uL MPV (9.4-12.4) fL Sodium (136-145) mmol/L Potassium (3.5-5.1) mmol/L Chloride (98-107) mmol/L Carbon Dioxide (21-32) mmol/L Anion Gap (3-11) BUN (6-23) mg/dl Creatinine (0.6-1.4) mg/dl Est Cr Clr Drug Dosing ml/min Est GFR ( Amer) ml/min Est GFR (Non-Af Amer) ml/min BUN/Creatinine Ratio (10-20) Glucose (70-99(Fasting)) mg/dl Calcium (8.5-10.1) mg/dl TSH 1.951 (0.300-4.500) uIu/ml Lyme Disease IgG Ab Negative (Negative) Lyme Disease IgM Ab Negative (Negative) Hepatitis C Ab (EIA) NON-REACTIVE (NON-REACTIVE) Hep C Ab Signal/Cutoff 0.01 (<1.00) SARS-CoV-2, RNA, NAAT (NEGATIVE) 01/08/22 01/08/22 Range/Units 05:22 05:22 WBC 7.71 (4.8-10.8) K/ul RBC 3.25 L (4.63-6.08) M/uL Hgb 9.4 L (14.0-18.0) g/dl Hct 28.6 L (40.1-51.0) % MCV 88.0 (80.0-100.0) fL MCH 28.9 (25.0-34.0) pg MCHC 32.9 (32.0-36.0) g/dL RDW Std Deviation 48.3 H (36.4-46.3) fL RDW Coeff of Ed 15.1 H (11.5-14.5) % Plt Count 168 (130-400) K/uL MPV 9.9 (9.4-12.4) fL Sodium 139 (136-145) mmol/L Potassium 4.3 (3.5-5.1) mmol/L Chloride 110 H (98-107) mmol/L Carbon Dioxide 26 (21-32) mmol/L Anion Gap 3 (3-11) BUN 31 H (6-23) mg/dl Creatinine 1.15 D (0.6-1.4) mg/dl Est Cr Clr Drug Dosing 103.7 ml/min Est GFR ( Amer) 81.4 ml/min Est GFR (Non-Af Amer) 70.3 ml/min BUN/Creatinine Ratio 27.0 H (10-20) Glucose 82 (70-99(Fasting)) mg/dl Calcium 7.9 L (8.5-10.1) mg/dl TSH (0.300-4.500) uIu/ml Lyme Disease IgG Ab (Negative) Lyme Disease IgM Ab (Negative) Hepatitis C Ab (EIA) (NON-REACTIVE) Hep C Ab Signal/Cutoff (<1.00) SARS-CoV-2, RNA, NAAT (NEGATIVE) Total Time Total Time Spent Total Time Spent (In Minutes): 20 Discharge Plan Discharge Items Patient Disposition: Home - Home Health Services Reason For Visit: Primary Osteoarthrits of the Right Knee Discharge Diagnosis: right knee osteoarthritis Activity: Per Instructions section Weightbearing: Right weightbearing Weightbearing Comment: as tolerated with walker Non-emergency contact: Surgeon Call non-emergency contact if: you have any medication questions, your pain is not controlled, your temperature is above 101.5, your wound has increased redness and your wound has increased drainage Follow-up/Referrals: Evelio Cain MD [Surgeon] - (Follow up with Dr. Cain in 14 days from the day of your surgery for your first postoperative visit) Bryan Amaro [Primary Care Provider] - Diet: Regular Addtl Attending Provider Instructions: ACTIVITY RECOMMENDATIONS: SELF CARE INSTRUCTIONS AFTER TOTAL KNEE REPLACEMENT A. You may need to continue a physical therapy program after discharge from the hospital. There are several options available to you. Your doctor will assist you in selecting the best one for you. 1. An out-patient facility 2 to 3 times a week for therapy or home therapy. 2. Continue working on all exercises taught to you in the hospital. Your goals should be to increase bending of your knee to 90 degrees and beyond and to fully straighten your knee. B. You may progress at your own pace from walking with a walker or crutches to a cane; then to no assistive devices. C. Make walking a part of your daily routine. Be up as much as comfortable with rest periods throughout the day. Rest with leg elevation is very important. Use the ice wrap frequently for the first 3-4 weeks. D. There are no restrictions on activities. You may ride in a car, shop, participate in team foreman and all social activities. E. Wear the long elastic stockings (ROBINSON hose) 20 hours a day for 2 weeks after surgery. They can be removed several times a day for laundering and for a bath. F. You may shower, no tub baths until cleared by your doctor. SPECIAL CARE INSTRUCTIONS: VERY IMPORTANT TO READ AND REVIEW A. There are a few signs you need to watch for after you are home. Call [facility] if you notice any of the followin. Increased severe knee pain. Some pain is expected especially when you exercise. 2. Increased swelling in your leg or knee; pain or swelling of the calf mu scle in either lower leg. 3. Any fluid drainage from the incision. 4. Shortness of breath or chest pain. B. Please call [facility] at if you have any concerns or questions about your operation or recovery. The doctor or his nurse will return your call promptly. C. You must take antibiotics before dental work, bladder, bowel or other surgery. Your doctor will provide you with a permanent care to carry describing this precaution. IMPORTANT: * REMEMBER TO TAKE ASPIRIN, 81 MG, TWICE DAILY FOR 4 WEEKS UNLESS OTHERWISE DIRECTED. THIS IS YOUR BLOOD THINNER. * HIGH RISK PATIENTS MAY BE PRESCRIBED A STRONGER BLOOD THINNER. THIS WILL BE PROVIDED AT DISCHARGE. * CALL IF INCREASED PAIN, REDNESS, DRAINAGE OR FEVER GREATER THAT 101. * WEAR ROBINSON HOSE 20 HOURS PER DAY FOR 2 WEEKS. * STEPHANIE Dressing - This is a large suction dressing covering your incision. This will help pull any excess drainage from the wound and allow your incision to heal properly. You may shower with this if you can keep the unit outside of the shower. If any bleeding or leakage is noted please call your doctor's office. This will remain on your incision for 7 days and then should be removed. This can be done yourself or by the home nursing staff if applicable. The entire unit is disposable once removed. Once removed, keep incision clean and dry. If redness or drainage is noted, please call your surgeon. . FOLLOW UP VISIT: If appointment is not already scheduled: Please call [facility] to make a follow-up appointment for 2 weeks after your surgery at . Stand-Alone Forms: My [facility], Opioid Pain Management, Smoking Cessation Medications and DC Order Prescriptions: New Xarelto 10 mg Tablet 10 mg PO DAILY 30 Days Qty: 30 0RF polyethylene glycol 3350 [Miralax] 17 gram powder in packet 17 g PO DAILY PRN (Reason: constipation) Qty: 5 0RF oxycodone 5 mg tablet 5 mg PO Q4H MDD 6 PRN (Reason: pain) Qty: 30 0RF Continued bupropion HCl [Wellbutrin SR] 150 mg Tablet Sustained-Release 12 Hr 150 mg PO QAM lisinopril 20 mg Tablet 20 mg PO QAM simvastatin [Zocor] 10 mg Tablet 10 mg PO QAM hydroxyzine pamoate [Vistaril] 50 mg Capsule 50 mg PO HS levothyroxine 150 mcg Tablet 150 mcg PO QAM paroxetine HCl [Paxil] 40 mg Tablet 80 mg PO QAM cyanocobalamin (vitamin B-12) [Vitamin B-12] 5,000 mcg Tablet, Sublingual 5,000 mcg SUBLINGUAL QAM cholecalciferol (vitamin D3) [Vitamin D3] 25 mcg (1,000 unit) Tablet 25 mcg PO QAM Discontinued diclofenac sodium 50 mg Tablet,Delayed Release (Dr/Ec) 50 mg PO BID ibuprofen 200 mg Tablet 800 mg PO Q6H PRN (Reason: Pain) Discharge Orders: Discharge Order (Routine); Ordered 01/08/22 Ordered By: Sanya Hartmann/Other Patient Handouts: Total Knee Replacement, Tips After Knee Surgery, Understanding Knee Replacement, Knee Replacement Recovery at Home, Home Safety After Joint Surgery Admission Data Admit Date/Time: 01/06/22 12:40 Attending Provider: Evelio Cain Admit Provider: Evelio Cain Primary Care Provider: Bryan Amaro Other Providers: Chandana Becerra Thomas E. Other Interventions: Discharge Summary Assessment (RN) Last Done: 01/08/22 12:47
== END 2022-01-08 17:30 | disposition home health service (06) ==
LOC: ASU 06:14 → PACUINP 06:14 → 3E 15:03
DX: Z88.8 Allergy status to other drugs, medicaments and biological substances; Z79.899 Other long term (current) drug therapy; Z87.891 Personal history of nicotine dependence; Z91.030 Bee allergy status; M17.11 Unilateral primary osteoarthritis, right knee